=== PATIENT | female | born 1970 | race Caucasian/White ===

== ENCOUNTER 2024-08-21 15:56 | Emergency (ER) | payer BC, SELFPAY ==
--- NOTE | 2024-08-21 15:57 | ED.EYEPROB ---
HPI - Eye Problem General Chief complaint: Skin/Abscess/Foreign Body Stated complaint: Eye Irritation/Rash Time Seen by Provider: 08/21/24 15:57 Source: patient Mode of arrival: ambulatory Limitations: no limitations History of Present Illness HPI Narrative: Dominique is a 54-year-old female patient presenting to clinic today with complaints of bilateral eye irritation/rash. She reports the area is very itchy and starting to swell. Has tried applying Vaseline on has taken Benadryl. Symptoms have been going on for the last few days. No visual changes or discharge coming from the eyes. Denies any eye pain Related Data Allergies Allergy/AdvReac Type Severity Reaction Status Date / Time morphine AdvReac Mild Nausea and Verified 08/21/24 16:10 Vomiting Review of Systems Review of Systems: Pertinent positives per HPI. Patient denies any fever, chills, rash, headache, visual changes, dizziness, cough, shortness of breath, chest pain, palpitations, nausea, vomiting, diarrhea, constipation, abdominal pain, or any urinary issues. [facility] Family History Family History (Updated 10/22/15 @ 23:21 by DOCTOR UNKNOWN) Sibling Patient's sister is in good health Mother Patient's mother is Social History Social History Alcohol intake: current Comments At the time of my signature, I reviewed and agree with the nursing past medical, surgical, social, and family history. There is no relevant family history pertinent to the patient complaint. Exam Narrative: General: Well-developed, well nourished, in no apparent distress Head: Normocephalic, atraumatic Eyes: Pupils equally round and reactive to light bilaterally, EOM intact, sclera and conjunctive clear, no discharge, lids mildly swollen to the upper lid with localized redness and red raised itchy scaly rash Ears: TMs intact and clear, ear canals clear, no drainage, grossly hearing normal. Nose: Nares patent, no discharge, no inflammation, no sinus tenderness. Mouth: Oral pharynx without lesions or masses, good dentition, MMM. Neck: Supple, trachea midline, no enlargement of anterior or posterior cervical nodes, no thyroid masses or goiter palpable. Cardio: Regular rate and rhythm, s1 and s2 normal, no murmur appreciated. Resp: Clear to auscultation bilaterally, no rhonchi, rales, wheezing or rubs Course Course Emergency Course: Portions of this record may have been created with voice recognition software. Level of Care: Express Care Visit Vital Signs Vital signs: Vital Signs Temperature 36.6 C 08/21/24 16:06 Pulse Rate 61 08/21/24 16:06 Respiratory Rate 16 08/21/24 16:06 Blood Pressure 141/87 H 08/21/24 16:06 Pulse Oximetry 99 08/21/24 16:06 Oxygen Delivery Room Air 08/21/24 16:06 Temperature 36.6 C 08/21/24 16:06 Pulse Rate 61 08/21/24 16:06 Respiratory Rate 16 08/21/24 16:06 Blood Pressure 141/87 H 08/21/24 16:06 Pulse Oximetry 99 08/21/24 16:06 Oxygen Delivery Room Air 08/21/24 16:06 Vital signs reviewed MDM - Eye Problem MDM Narrative Medical decision making narrative: At the time of visit patient is resting comfortably on the exam table. Patient appears to be nontoxic. Plan: I suspect patient has eyelid dermatitis. Prescription for triamcinolone cream was sent to the pharmacy. Supportive measures were discussed with the patient and they voiced understanding discharge instructions and agrees to treatment plan. Return precautions reviewed Differential Diagnosis Differential diagnosis: Likely corneal abrasion, conjunctivitis, acute iritis, hyphema, periorbital cellulitis, subconjunctival hemorrhage, glaucoma, corneal ulcer, ruptured globe and other (Eyelid dermatitis) Discharge Plan Discharge Clinical Impression: Dermatitis contact, eyelid Qualifiers: Laterality: bilateral Eyelid: upper Qualified Code(s): H01.111 - Allergic dermatitis of right upper eyelid Patient Disposition: Home Condition: Stable Instructions: Antibiotic Form, Dermatitis (ED) Additional Instructions: Apply triamcinolone cream to the affected area twice daily as directed Practice good hand washing techniques Avoid touching eyes May apply cool compresses to the affected area to help alleviate pain and swelling May moisturize using a non scented lotion such as Lubriderm, or Aquaphor, or Cetaphil. May take Tylenol/Motrin as needed for pain or fever May take Benadryl as needed for itching Follow-up with your PCP in 3-5 days if symptoms persist or sooner if they worsen Go to the emergency room if you develop any fever that is not controlled by Tylenol or Motrin, loss of vision, eye pain, increase eye swelling,visual changes, headache, confusion, lethargy, weakness, chest pain, or shortness of breath. Patient Language: Citizen Of [place] Prescriptions: New triamcinolone acetonide 0.1 % cream 1 applic topical BID 7 Days Qty: 30 0RF Follow-up/Referrals: UNKNOWN,DOCTOR [Non-Staff] - Time of Disposition: 16:09 Quality NIHSS Nursing Documentation ED NIHSS nursing documentation: reviewed/agree
[2024-08-21 16:06] VITALS: BP 141/87; PULSE 61; RESP 16; TEMP 36.6; O2SAT 99
== END 2024-08-21 16:13 | disposition home or self-care (01) ==
PROVIDERS: Emergency Provider Nurse Practitioner Family
DX: H01.114 Allergic dermatitis of left upper eyelid (principal); H01.111 Allergic dermatitis of right upper eyelid
CPT/HCPCS: 99213; G0463